=== PATIENT | female | born 1995 | race Caucasian/White ===

== ENCOUNTER 2022-08-24 07:07 | Inpatient (IN) | payer MEDICAID ==
[~2022-08-24 07:07] MED LIST: Lidocaine 1.5% with EPINEPHrine 1:200,000 5 ML Amp ONE; Sodium Bicarbonate 8.4% 50 MEQ/50 ML SDV ONE; ePHEDrine 50 MG/ML SDV ONE
[2022-08-24] MEDS ORDERED: Nalbuphine HCl 10 MG/ 1ML Amp IVPUSH PRN (07:47)
[2022-08-24] MEDS ORDERED: Methylergonovine 0.2 MG/1 ML Amp IM PRN (07:47)
[2022-08-24] MEDS ORDERED: Misoprostol 200 MCG Tab PO PRN (07:47)
[2022-08-24] MEDS ORDERED: Lidocaine 1% 50 ML MDV INJECT PRN (07:47)
[2022-08-24] MEDS ORDERED: Oxytocin/Lactated Ringers 10 UNIT/1,000 ML BAG IV SCH ×2 (08:00)
[2022-08-24] MEDS ORDERED: Sodium Chloride 0.9% 1,000 ML ONE ×2 (10:16→10:50)
[2022-08-24] MEDS: Lactated Ringers 1,000 ML IV SCH ×2 (13:50→15:04)
[2022-08-24] MEDS ORDERED: Bupivacaine/fentaNYL/NS 100 ML Bag EPIDUR PRN (13:55)
[2022-08-24] MEDS ORDERED: ePHEDrine 50 MG/ML SDV IVPUSH PRN ×2 (13:55→17:42)
[2022-08-24] MEDS ORDERED: diphenhydrAMINE 50 MG/ML SDV IVPUSH PRN ×3 (13:55→17:42)
[2022-08-24] MEDS ORDERED: fentaNYL 100 MCG/2 ML SDV EPIDUR PRN (13:55)
[2022-08-24] MEDS ORDERED: Metoclopramide 10 MG/2 ML SDV IVPUSH ONE (15:19)
[2022-08-24] MEDS ORDERED: Citric Acid/Sodium Citrate Solution 30 ML Cup PO ONE (15:19)
[2022-08-24] MEDS ORDERED: Bupivacaine 0.5% 30 ML SDV ONE (15:26)
[2022-08-24] MEDS ORDERED: Azithromycin 500 MG in Sodium Chloride 0.9% 250 ML IV ONE (15:30)
[2022-08-24] MEDS ORDERED: Lidocaine 2% with EPINEPHrine 1:200,000 20 ML SDV ONE (15:32)
[2022-08-24] MEDS ORDERED: ceFAZolin 2 GM Vial ONE (15:50)
[2022-08-24] MEDS ORDERED: fentaNYL 100 MCG/2 ML SDV ONE (15:52)
[2022-08-24] MEDS ORDERED: Dexmedetomidine 200 MCG/2 ML SDV ONE (15:53)
[2022-08-24] MEDS ORDERED: Methylergonovine 0.2 MG/1 ML Amp ONE (16:04)
[2022-08-24] MEDS ORDERED: Morphine PF 10 MG/10 ML SDV ONE (16:07)
[2022-08-24] MEDS ORDERED: fentaNYL 100 MCG/2 ML SDV IVPUSH PRN (16:14)
[2022-08-24] MEDS ORDERED: Ondansetron 4 MG/2 ML SDV IVPUSH PRN (16:14)
[2022-08-24] MEDS ORDERED: Ketorolac 30 MG/ML SDV ONE (16:15)
[2022-08-24] MEDS ORDERED: Ondansetron 4 MG/2 ML SDV ONE (16:15)
[2022-08-24] MEDS ORDERED: Naloxone 0.4 MG/ML SDV IVPUSH PRN (17:42)
[2022-08-24] MEDS ORDERED: Dextrose 5%-Lactated Ringers 1,000 ML IV SCH (17:42)
[2022-08-24] MEDS ORDERED: Ondansetron 4 MG/2 ML SDV IV PRN (17:42)
[2022-08-24] MEDS: Simethicone 80 MG Tab.Chew PO SCH ×2 (20:39→23:38)
[2022-08-24] MEDS: Ibuprofen 800 MG Tab PO SCH (23:38)
[2022-08-25] MEDS: Ibuprofen 800 MG Tab PO SCH ×3 (05:52→21:00)
[2022-08-25] MEDS: Simethicone 80 MG Tab.Chew PO SCH ×4 (08:28→21:01)
[2022-08-25] MEDS ORDERED: Sertraline 50 MG Tab PO SCH (09:00)
[2022-08-25] MEDS: Prenatal Multivitamin with Calcium/Folic Acid/Iron Tab PO SCH (10:23)
[2022-08-25] MEDS: Acetaminophen/oxyCODONE 325-5 MG Tab PO PRN ×3 (11:22→21:54)
[2022-08-25] MEDS: Docusate Sodium 100 MG Cap PO PRN (11:22)
[2022-08-25] MEDS ORDERED: diphenhydrAMINE 25 MG Cap PO ONE (19:40)
[2022-08-26] MEDS: Docusate Sodium 100 MG Cap PO PRN (02:19)
[2022-08-26] MEDS: Acetaminophen/oxyCODONE 325-5 MG Tab PO PRN ×3 (02:19→12:18)
[2022-08-26] MEDS: Ibuprofen 800 MG Tab PO SCH (06:50)
[2022-08-26] MEDS: Prenatal Multivitamin with Calcium/Folic Acid/Iron Tab PO SCH (08:44)
[2022-08-26] MEDS: Simethicone 80 MG Tab.Chew PO SCH ×2 (08:44→14:24)
== END 2022-08-26 13:05 | disposition home or self-care (01) | DRG 788 ==
LOC: JD.OB 07:41 → UNDOADMIN 07:41 → JD.OB 14:24 → JD.MS 14:24 → JD.OB 14:33 → JD.MS 16:02 → JD.OB 16:02
PROVIDERS: ADMIT Obstetrics & Gynecology; ATTEND Obstetrics & Gynecology
PROC: 10D00Z1 Extraction of Products of Conception, Low, Open Approach (ICD-10-PCS; principal; 2022-08-24)
PROC: 10907ZC Drainage of Amniotic Fluid, Therapeutic from Products of Conception, Via Natural or Artificial Opening (ICD-10-PCS; 2022-08-24)
DX: O69.81X0 Labor and delivery complicated by cord around neck, without compression, not applicable or unspecified (principal); Z3A.39 39 weeks gestation of pregnancy; Z37.0 Single live birth; O76 Abnormality in fetal heart rate and rhythm complicating labor and delivery; O99.344 Other mental disorders complicating childbirth; F41.9 Anxiety disorder, unspecified; F32.A Depression, unspecified
CPT/HCPCS: 01967; 01968; 36415; 51702; 59025; 85025; 86592; 86850; 86900; 86901; 94762; A9270-GY; G0008; J0456; J0690; J1200; J1885; J2210; J2274; J2405; J2765; J3010; J3490; J7030; J7050; J7120; J7121

== ENCOUNTER 2025-05-29 21:06 | Emergency (ER) | payer BC ==
[2025-05-29] MEDS ORDERED: Sodium Chloride 0.9% 10 ML Syringe FLUSH PRN (21:41)
[2025-05-29 22:42] LABS: BASOPHILS ABSOLUTE AUTO 0.1 K/mm3 (0.0-0.2); BASOPHILS PERCENT AUTO 0.5 % (0.0-1.0); EOSINOPHILS ABSOLUTE AUTO 0.0 K/mm3 (0.0-0.4); EOSINOPHILS PERCENT AUTO 0.1 % (0.0-6.0); IMMATURE GRAN ABSOLUTE AUTO 0.06 K/mm3 (0.00-0.05); IMMATURE GRAN PERCENT AUTO 0.5 % (0.0-0.4); LYMPHOCYTES ABSOLUTE AUTO 1.5 K/mm3 (1.0-4.8); LYMPHOCYTES PERCENT AUTO 13.2 % (24.0-44.0); MEAN PLATELET VOLUME 9.9 fl (9.4-12.3); MONOCYTES ABSOLUTE AUTO 0.4 K/mm3 (0.0-0.8); MONOCYTES PERCENT AUTO 3.5 % (0.0-8.0); NEUTROPHILS ABSOLUTE AUTO 9.0 K/mm3 (1.8-7.7); NEUTROPHILS PERCENT AUTO 82.2 % (41.0-71.0); NRBC ABSOLUTE 0.00 (0.00-0.02); NRBC PERCENT 0.0 % (0.0-0.2); PLATELET COUNT,PLT 254 K/mm3 (150-400); RED BLOOD CELL COUNT 4.99 M/mm3 (4.10-5.30); WHITE BLOOD CELL COUNT,WBC 10.99 K/mm3 (3.9-11.3)
[2025-05-29] MEDS: Ketorolac 30 MG/ML SDV IVPUSH ONE (22:49)
[2025-05-29] MEDS: diphenhydrAMINE 50 MG/ML SDV IVPUSH ONE (22:52)
[2025-05-29 23:02] LABS: A/G RATIO 1.0 (1-2); ALANINE AMINOTRANSFERASE,ALT 26.0 U/L (14-59); ASPARTATE AMNIOTRANSFERASE,AST 21.0 U/L (15-37); BILIRUBIN TOTAL 0.5 mg/dL (0.2-1.0); BLOOD UREA NITROGEN,BUN 8.0 mg/dL (7-18); CARBON DIOXIDE,CO2 26.0 mEq/L (21-32); CHLORIDE,CL 101.0 mEq/L (98-107); CREATININE 0.6 mg/dL (0.55-1.02); EST CRCL DRUG DOSING (CG) 124.05 mL/min; ESTIMATED GFR 126.0 mL/min (>60); GLUCOSE RANDOM 94.0 mg/dL (70-99); POTASSIUM,K 4.3 mEq/L (3.5-5.1); PROTEIN TOTAL,TP 8.5 g/dl (6.4-8.2); SODIUM,NA 139.0 mEq/L (136-145)
== END 2025-05-29 23:38 | disposition home or self-care (01) ==
LOC: JD.ED 21:06
DX: R11.2 Nausea with vomiting, unspecified (principal); T49.8X5A Adverse effect of other topical agents, initial encounter; Z79.899 Other long term (current) drug therapy
CPT/HCPCS: 36415; 80053; 84703; 85025; 96361; 96374; 96375; 99284; J1200; J1885; J2765; J7030